=== PATIENT | male | born 1980 | race Caucasian/White ===

== ENCOUNTER 2020-04-05 04:20 | Inpatient (IN) | payer MEDICARE ==
[2020-04-05] MEDS ORDERED: Aspirin 325 MG TAB PO SCH (05:00)
--- NOTE | 2020-04-05 05:10 | PDOC.EVN ---
Event Note - Event Note Event Note: [id number] HP dictated
[2020-04-05] MEDS ORDERED: Furosemide 40 MG/4 ML VIAL SLOW IVP SCH ×2 (06:00→14:00)
[2020-04-05 06:12] LABS: Troponin I Less than 0.010 ng/mL (< 0.028)
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
[2020-04-05] MEDS ORDERED: Aspirin 325 mg Enteric Coated Tablet PO SCH (09:00)
[2020-04-05] MEDS ORDERED: Aspirin Chewable 81 MG TAB PO SCH (09:00)
[2020-04-05] MEDS ORDERED: Nitroglycerin 50 MG/250 ML BOT 250 ML IVPB SCH (09:30)
[2020-04-05] MEDS: Enoxaparin Sodium 40 MG/0.4 ML SYRINGE SC SCH (10:28)
[2020-04-05] MEDS ORDERED: Hydrochlorothiazide 25 MG TAB PO SCH (10:30)
[2020-04-05] MEDS ORDERED: Lisinopril 20 MG TAB PO SCH ×2 (10:30→21:00)
[2020-04-05] MEDS ORDERED: cloNIDine 0.1 MG TAB PO SCH (10:30)
[2020-04-05] MEDS ORDERED: Potassium Chloride 20 MEQ TAB PO SCH (10:30)
[2020-04-05 11:16] VITALS: BMI 42.4
[2020-04-05] MEDS ORDERED: Albuterol Sulfate 1.25 MG/3 ML NEB NEB PRN (13:44)
[2020-04-05] MEDS ORDERED: methylPREDNISolone Sod Succ 40 MG VIAL IVP SCH (13:45)
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
--- NOTE | 2020-04-05 15:26 | PDOC.HOSPP ---
- Subjective Encounter Date: 04/05/20 Encounter Time: 10:00 Subjective: THe patient was on nitro drip for uncontrolled hypertension. Reports he was on lisinopril and amlodipine for years, then was placed on benzapril, clonidine and podochloride? He states he just started podochloride few days ago, but was on the other medicines for years. Then last night he developed severe shortness of breath especially while laying down, wheezing and dry cough. Patient states he is always wheezing and inhalers aren't working He reports significant improvement in breathing compared to yesterdfay Last BM was yesterday. - Objective Vital Signs & Weight: Vital Signs (12 hours) Temp Pulse Resp BP Pulse Ox 04/05/20 14:23 76 28 H 98 04/05/20 13:00 97.7 F 04/05/20 10:29 146/92 H 04/05/20 10:28 146/92 H 04/05/20 08:30 97.6 F 100 Weight Admit Weight 255 lb 1.197 oz Weight 255 lb 1.197 oz Most Recent Monitor Data Heart Rate from ECG 74 NIBP 152/78 NIBP BP-Mean 102 Respiration from ECG 21 SpO2 99 I&O: 04/04/20 04/05/20 04/06/20 06:59 06:59 06:59 Intake Total 560 Output Total 600 Balance -40 Hospitalist ROS - Medication Medications: Active Medications Generic Name Dose Route Start Last Admin Trade Name Freq PRN Reason Stop Dose Admin Albuterol/Ipratropium 3 ml 04/05/20 14:30 04/05/20 14:23 Duoneb EZPAP 3 ml [id number] JAYSHREE Administration Enoxaparin Sodium 40 mg 04/05/20 09:00 04/05/20 10:28 Lovenox SC 40 mg 0900 JAYSHREE Administration Methylprednisolone Sodium Succinate 40 mg 04/05/20 13:45 04/05/20 14:29 Solu-Medrol IVP 04/05/20 15:45 40 mg NOW JAYSHREE Administration - Exam General Appearance: NAD, awake alert General - other findings: obese Eye: PERRL, anicteric sclera ENT: normocephalic atraumatic, no oropharyngeal lesions Neck: no JVD Heart: RRR, no murmur, no gallops, no rubs, normal peripheral pulses Respiratory - other findings: diminished breath sounds with significant wheezing Gastrointestinal: soft Gastrointestinal - other findings: distended, soft to palpation Extremities: no cyanosis, no clubbing, 1+ LE edema Hosp A/P - Plan This is a 39 year old male with hypertension presenting with shortness of breath ,dry cough, wheezing Acute hypoxic respiratory failure likely from COPD exacerbation vs mild diastolic heart failure - will give IV steroids - duonebs q4 and breathing treatments prn - continue lasix 40 mg IV daily - ECHO showed mild diastolic dysfunction. Cardiology is seeing the patient as well - troponins are negative times three Leukocytosis - WBC 13, will monitor - no fevers - will hold on antibiotics given he only has dry cough
[2020-04-05] MEDS: Hydrochlorothiazide 25 MG TAB PO SCH (20:12)
[2020-04-05] MEDS: cloNIDine 0.1 MG TAB PO SCH (20:12)
[2020-04-06 04:55] LABS: Anion Gap 13 mmol/L (10-20); BUN (Urea Nitrogen) 14 mg/dL (8.9-20.6); Calc. Creatinine Clearance 145 mL/min (70-130); Calcium 9.5 mg/dL (7.8-10.44); Carbon Dioxide 25 mmol/L (22-29); Chloride 101 mmol/L (98-107); Estimated GFR-MDRD 73; Glucose 169 mg/dL (70-105); Potassium 3.8 mmol/L (3.5-5.1); Sodium 135 mmol/L (136-145)
[2020-04-06 05:41] LABS: Band 17 % (5-11); Hemoglobin 15.2 g/dL (14.0-18.0); Lymphocytes 8 % (21-51); MDiff Complete? YES; Mean Corpuscular HGB CONC 32.5 g/dL (32.0-36.0); Mean Corpuscular Hemoglobin 30.6 pg (27.0-31.0); Mean Platelet Volume 9.7 fL (7.4-10.4); Monocytes 6 % (0-10); Neutrophil 69 % (42-75); Platelet Count 254 thou/uL (130-400); Red Blood Cell (RBC) Count 4.97 mill/uL (4.70-6.10); White Blood Cell (WBC) Count 24.9 thou/uL (4.8-10.8)
[2020-04-06] MEDS ORDERED: Potassium Chloride 20 MEQ TAB PO SCH (08:00)
[2020-04-06] MEDS ORDERED: Aspirin 325 mg Enteric Coated Tablet PO SCH (09:00)
[2020-04-06] MEDS ORDERED: Lisinopril 20 MG TAB PO SCH (09:00)
[2020-04-06] MEDS ORDERED: methylPREDNISolone Sod Succ 40 MG VIAL IVP SCH (09:00)
[2020-04-06] MEDS: cloNIDine 0.1 MG TAB PO SCH (09:17)
[2020-04-06] MEDS: Hydrochlorothiazide 25 MG TAB PO SCH (09:18)
[2020-04-06] MEDS: Enoxaparin Sodium 40 MG/0.4 ML SYRINGE SC SCH (09:19)
[2020-04-06 11:39] VITALS: TEMP 97.7
--- NOTE | 2020-04-06 13:11 | PDOC.CPN ---
- Subjective Date: 04/06/20 Time: 13:09 Interval history: He feels much better. He feels Nebs make his breathing much better. - Review of Systems General: denies: fever/chills, weight/appetite/sleep changes, night sweats, fatigue Respiratory: denies: cough, congestion, shortness of breath, exercise intolerance Cardiovascular: denies: chest pain, palpitation, edema, paroxysmal nocturnal dyspnea, orthopnea Gastrointestinal: denies: nausea, vomiting, diarrhea, constipation, abd pain, GI bleeding Musculoskeletal: denies: pain, tenderness, stiffness, swelling, arthritis/ arthralgias Neurological: denies: numbness, syncope, seizure, weakness - Objective Allergies/Adverse Reactions: Allergies Allergy/AdvReac Type Severity Reaction Status Date / Time methylphenidate Allergy Verified 04/05/20 04:46 [From Ritalin] Visit Medications: Current Medications Albuterol Sulfate (Albuterol Sulfate) 1.25 mg NEB [id number] PRN PRN Reason: Wheezing Albuterol/Ipratropium (Duoneb) 3 ml EZPAP [id number] [facility] Last Admin: 04/06/20 12:30 Dose: Not Given Aspirin (Ecotrin) 325 mg PO DAILY [facility] Last Admin: 04/06/20 09:17 Dose: 325 mg Clonidine (Catapres) 0.1 mg PO BID [facility] Last Admin: 04/06/20 09:17 Dose: 0.1 mg Enoxaparin Sodium (Lovenox) 40 mg SC 0900 [facility] Last Admin: 04/06/20 09:19 Dose: 40 mg Hydrochlorothiazide (Hydrochlorothiazide) 25 mg PO BID [facility] Last Admin: 04/06/20 09:18 Dose: 25 mg Lisinopril (Zestril) 40 mg PO DAILY [facility] Last Admin: 04/06/20 09:18 Dose: 40 mg Methylprednisolone Sodium Succinate (Solu-Medrol) 40 mg IVP DAILY [facility] Last Admin: 04/06/20 09:18 Dose: 40 mg Potassium Chloride (K-Dur) 20 meq PO QAM-WM [facility] Last Admin: 04/06/20 09:17 Dose: 20 meq Vital Signs & Weight: Vital Signs Temp Pulse Resp BP BP Pulse Ox 04/06/20 11:35 97.7 F 82 18 163/89 H 98 04/06/20 09:17 176/109 H 04/06/20 08:00 97.4 F L 73 21 H 170/101 H 96 04/06/20 06:48 70 16 97 04/06/20 04:09 97.7 F 81 18 190/103 H 96 04/06/20 01:58 20 Admit Weight 255 lb 1.197 oz Weight 255 lb 1.197 oz - Physical Exam General: alert & oriented x3 HEENT: mucus membranes moist Neck: supple neck Cardiac: regular rate and rhythm Lungs: clear to auscultation Neuro: grossly intact Abdomen: active bowel sounds Extremities: no edema Skin: clear Musculoskeletal: no pain - Labs Result Diagrams: 04/06/20 04:21 04/06/20 04:21 Troponin/CKMB Troponin I 0.010 ng/mL (< 0.028) 04/05/20 07:53 - Telemetry Sinus rhythms and dysrhythmias: sinus rhythm - Assessment/Plan Assessment/Plan: 1. HTN urgency 2. Expiratory wheezes, Bronchial asthma? 3. Diastolic CHF PLAN: - Will add nifedipine to BP meds. - Continue to up titrate meds in next few days. - Some of his BP issues are related to high dose steroids now i would guess his BP will improve once steroids done.
[2020-04-06] MEDS ORDERED: NIFEdipine XL 30 MG TAB PO SCH (15:00)
[2020-04-06 16:17] VITALS: BP 163/95
--- NOTE | 2020-04-07 02:40 | DIS ---
DATE OF ADMISSION: 04/05/2020 DATE OF DISCHARGE: 04/06/2020 DISCHARGE DIAGNOSES: 1. Acute hypoxic respiratory failure secondary to chronic obstructive pulmonary disease exacerbation versus mild diastolic heart failure. 2. Leukocytosis. 3. Hypertensive urgency. 4. Tobacco abuse BRIEF HISTORY OF PRESENT ILLNESS: This is a 39-year-old male with a past medical history of uncontrolled hypertension chronically in the 190s to 200, who presented to the emergency room with worsening shortness of breath. The patient reported that he had been having worsening shortness of breath that was getting worse over the past few days. He reported wheezing, dry cough, and shortness of breath, especially while lying down. He also had a dry cough. The patient reports that he has a history of COPD, but has never been prescribed any inhalers. He also reported recently been taking a medicine called podochloride? He states this was for hypertension. He took two doses but his wheezing and shortness of breath worsened. When the patient presented to the emergency room, his blood pressure was 149/97, but it increased to 177/110. The patient was noted to have mild edema in his lower extremities. He is noted to have significant wheezing. He did also have some slightly inverted T-waves. The patient had a chest x-ray on the , which showed no acute pulmonary findings. For some reason, there was a concern for mild pulmonary edema, so he was initially admitted to the CCU on a nitroglycerin drip and given IV lasix 40 mg. . He was admitted for further workup. HOSPITAL COURSE: Acute hypoxic respiratory failure secondary to COPD exacerbation versus mild diastolic heart failure. The patient was noted to have significant wheezing and diffusely diminished lung sounds. He was treated for a COPD exacerbation with IV steroids and breathing treatments. His shortness of breath resolved the following day. He was discharged with prednisone for five days, albuterol rescue inhaler prn, inhaled steroid and duoneb in emergency. Hypertensive urgency: The patient had elevated BP on admission. He was asymptomatic and there was no pulmonary edema on admission, but he was treated in the ER with a nitro drip which was discontinued shortly after resuming his home BP meds. ECHO showed mild diastolic dysfunction. BP was 190 systolic on morning of discharge. His lisinopril was increased to 40 mg and he was also given nifedipine 30 mg as well. Cardiology was consulted. His blood pressure improved to 163/95 with these adjustments; the patient was very anxious to go home and states his BP has been 200's for years. He will be discharged with lisinopril 40, hydrochlorothiazide 25 mg twice daily, and nifedipine. He will follow up with Dr. Hall in 4 weeks. Tobacco abuse: he was prescribed nicotine patch on discharge. Leukocytosis: WBC was 24.9 on discharge likely from IV steroids. This should be repeated in a week. DISCHARGE PHYSICAL EXAMINATION: VITAL SIGNS: Temperature 97.7, heart rate 82, respiratory rate 18, O2 saturation 98% on room air, and blood pressure 162/95. GENERAL: The patient is alert, awake, and oriented x3. CVS: Regular rate and rhythm with no murmurs, rubs, or gallops. LUNGS: Clear to auscultation bilaterally. ABDOMEN: Positive bowel sounds. Soft, nontender, and nondistended. EXTREMITIES: No edema. PERTINENT LABORATORY DATA: CBC 04/06: White count 24.9, hemoglobin 15.2, hematocrit 46.7, and platelet count is 254. BMP 04/06: Shows a sodium 135. Rest of BMP unremarkable. Troponin I: Less than 0.010 x3. PERTINENT IMAGING: Chest x-ray 04/05: Shows no acute disease. There is ectasia of the thoracic aorta. Echo: Shows EF of 60% to 65%, grade 2 to 3 diastolic dysfunction. Mild MR. Mild TR. DISCHARGE CONDITION: Stable. ACTIVITY: As tolerated. DIET: Regular diet. DISCHARGE MEDICATIONS: 1. DuoNeb nebulizer q.4 hours p.r.n. 2. ProAir inhaler q.4 hours p.r.n. 3. Pulmicort inhaler one puff inhalation b.i.d. 4. Hydrochlorothiazide 25 mg p.o. b.i.d. 5. Lisinopril 40 mg p.o. daily. 6. Nicotine patch one topical each daily. 7. Nifedipine 30 mg XL p.o. daily. 8. Prednisone 40 mg p.o. q.a.m. DISCHARGE INSTRUCTIONS: The patient should follow up with his PCP in a week. He should follow up with Dr. Abhi Hall in a month. Job ID: [id number] MTDD
[2020-04-07] MEDS ORDERED: NIFEdipine XL 30 MG TAB PO SCH (09:00)
--- NOTE | 2020-04-09 08:55 | PQF ---
[employer] Crystal Reports Winform FrancisNAEEM QURESHI JR EMILY, KIM [id number] [facility]-267 [id number] CLINICAL DOCUMENTATION CLARIFICATION FORM: POST DISCHARGE Addendum to original discharge summary date: ____ Late entry note date: __ DATE: 04/09/2020 ATTN: Dr. Nelson [facility] Please exercise your independent, professional judgment in responding to the clarification form. Clinical indicators are provided on the bottom of this form for your review Kindly clarify regarding acuity of heart failure Please check appropriate box(s): HEART FAILURE: ACUITY [ ] Acute [ X ] Acute on Chronic [ ] Chronic [ ] Other diagnosis [ ] Unable to determine In addition, please specify: Present on Admission (POA): [ ] Yes [ ] No [X ] Unable to determine For continuity of documentation, please document condition throughout progress notes and discharge summary. Thank You. CLINICAL INDICATORS - SIGNS / SYMPTOMS / LABS Acute congestive heart failure ?/pulmonary edema - H&P Acute hypoxic respiratory failure secondary to COPD exacerbation versus mild diastolic heart failure - Discharge summary Hypertensive urgency, most likely diastolic dysfunction - Consult 04/05 by Abhi Hall MD Ejection fraction is visually estimated at 60-65%. Grade 2/3 diastolic dysfunction - Transthoracic echocardiography 04/05 Diastolic CHF - PN 04/06 by Abhi Hall MD RISKS: Hypertensive emergency, obesity - H&P TREATMENTS: IV Lasix 04/05 - Medications Transthoracic echocardiography 04/05 (This form is maintained as a part of the permanent medical record) 2014 [employer]. All Rights Reserved [email or web address]
== END 2020-04-06 17:00 | disposition home or self-care (01) | DRG 291 ==
LOC: ERS 04:20 → ERHOLD 04:52 → CCU 08:26 → 2NO 16:02
PROVIDERS: ADMIT Internal Medicine; ATTEND Internal Medicine
DX: I11.0 Hypertensive heart disease with heart failure (principal); J96.01 Acute respiratory failure with hypoxia; J44.1 Chronic obstructive pulmonary disease with (acute) exacerbation; Z68.41 Body mass index [BMI] 40.0-44.9, adult; I50.33 Acute on chronic diastolic (congestive) heart failure; D72.829 Elevated white blood cell count, unspecified; E66.9 Obesity, unspecified; I16.0 Hypertensive urgency; I08.1 Rheumatic disorders of both mitral and tricuspid valves; Z88.8 Allergy status to other drugs, medicaments and biological substances; Z98.890 Other specified postprocedural states
CPT/HCPCS: 36415; 80048; 85025; 93005; 93306; 94640; 96365; 96366; J1650; J2920; J7620

== ENCOUNTER 2020-07-03 05:09 | Inpatient (IN) | payer MEDICARE, OTHER ==
[2020-07-03] MEDS ORDERED: Acetaminophen 325 MG TAB PO PRN (05:40)
--- NOTE | 2020-07-03 06:06 | PDOC.EVN ---
Event Note - Event Note Event Note: [id number] HP
--- NOTE | 2020-07-03 06:40 | HP ---
CHIEF COMPLAINT: Shortness of breath. HISTORY OF PRESENT ILLNESS: Mr. Garvey is a 40-year-old male with past medical history of COPD; congestive heart failure, diastolic, hypertension, traumatic brain injury, among others, is being transferred from [place] ER after he presented today with shortness of breath. He reports a significant cough and thick white sputum. Denies fever or chills. Prior to transfer, the patient was given three DuoNebs, Solu-Medrol and magnesium. The patient had significant improvement in his breathing, but still has significant wheezing. Workup in the emergency room including chest x-ray, no acute finding. The patient has been in the hospital for further management. PAST MEDICAL HISTORY: 1. Hypertension. 2. Cardiac arrhythmia. 3. Obesity. 4. Traumatic brain injury. 5. Chronic obstructive pulmonary disease. PAST SURGICAL HISTORY: Multiple surgeries to the left ear and surgery to the left knee. SOCIAL HISTORY: Drinks socially. He chews tobacco. FAMILY HISTORY: Grandfather of congestive heart failure in his 60s. ALLERGIES: RITALIN. HOME MEDICATIONS: See home medication reconciliation form for updated medications. REVIEW OF SYSTEMS: Review of 14 systems negative except what is mentioned in history of present illness. PHYSICAL EXAMINATION: GENERAL: The patient is awake, alert, in moderate respiratory distress. VITAL SIGNS: Blood pressure 166/95, pulse is 89, respiratory rate is 23, temperature is 98.1, oxygen saturation 92% on room air. HEAD AND NECK:Normocephalic, atraumatic. chest: Diffuse bilateral expiratory wheeze. HEART: S1, S2. Regular. ABDOMEN: Obese, soft. Bowel sounds present. NEUROLOGIC: Awake, alert, oriented, moving extremities. PSYCHIATRIC: Unable to assess. EXTREMITIES: No clubbing or cyanosis. LABORATORY DATA: WBC 12.7, hemoglobin 14.1, platelets 219. Sodium 139, potassium 4.1, glucose 120, chloride is 102. Troponin 0.01. BNP less than 10. Chest x-ray, mild pulmonary vascular congestion, otherwise no acute finding. ASSESSMENT AND PLAN: 1. Chronic obstructive pulmonary disease with acute exacerbation. 2. Hypertension. 3. Congestive heart failure, diastolic; chronic. 4. Obesity. 5. History of cardiac arrhythmias. 6. History of traumatic brain injury. PLAN: 1. Admit. 2. Continue with bronchodilators scheduled as needed. 3. Oxygen to keep saturation more 92%. 4. IV steroids. 5. IV antibiotics. 6. Reconcile home medications. 7. DVT prophylaxis as appropriate. 8. Expected length of stay, 2 midnights or more. Job ID: [id number]
[2020-07-03] MEDS: cefTRIAXone\\ROCEPHIN 1 GM in Sodium Chloride 0.9% 100 ML IVPB SCH (08:10)
[2020-07-03] MEDS: methylPREDNISolone Sod Succ 40 MG VIAL IVP SCH ×4 (08:17→23:31)
[2020-07-03] MEDS: Azithromycin 500 MG in Sodium Chloride 0.9% 250 ML 250 ML IVPB SCH (09:57)
[2020-07-03] MEDS: hydrALAZINE 20 MG/ML VIAL SLOW IVP PRN ×3 (10:01→20:14)
[2020-07-03 10:09] VITALS: BMI 41.3
[2020-07-03 11:44] LABS: SARS-CoV-2 MS2 Positive; SARS-CoV-2 N Gene Negative; SARS-CoV-2 S Gene Negative; SARS-CoV-2 by NAA Not Detected (NotDetected); SARS-CoV-2 orf1ab Negative
[2020-07-03] MEDS ORDERED: Albuterol Sulfate 2.5 mg/3 ml Neb NEB PRN (16:15)
[2020-07-03] MEDS ORDERED: NIFEdipine XL 30 MG TAB PO SCH (17:45)
[2020-07-03] MEDS ORDERED: Magnesium 2 GM/50 ML 2 GM in Premix Bag 1 BAG IVPB SCH (18:30)
[2020-07-03] MEDS ORDERED: guaiFENesin ER 600 MG TAB PO SCH (18:30)
[2020-07-03] MEDS: Mometasone 200 MCG/PUFF (1 INHALER) INH SCH (18:50)
[2020-07-03] MEDS: Nystatin Powder 15 GM BOT TOP SCH (20:13)
[2020-07-03] MEDS: Hydrochlorothiazide 25 MG TAB PO SCH (20:13)
[2020-07-03] MEDS ORDERED: Amlodipine 5 MG TAB PO SCH (23:45)
[2020-07-04] MEDS: cloNIDine 0.1 MG TAB PO PRN (01:49)
[2020-07-04] MEDS: hydrALAZINE 20 MG/ML VIAL SLOW IVP PRN ×2 (02:37→06:10)
[2020-07-04] MEDS ORDERED: cloNIDine 0.2 MG TAB PO SCH (03:45)
[2020-07-04] MEDS: Azithromycin 500 MG in Sodium Chloride 0.9% 250 ML 250 ML IVPB SCH (06:00)
[2020-07-04] MEDS: methylPREDNISolone Sod Succ 40 MG VIAL IVP SCH ×3 (06:00→18:05)
[2020-07-04] MEDS: cefTRIAXone\\ROCEPHIN 1 GM in Sodium Chloride 0.9% 100 ML IVPB SCH (06:01)
[2020-07-04] MEDS: Hydrochlorothiazide 25 MG TAB PO SCH ×2 (09:21→22:32)
[2020-07-04] MEDS: guaiFENesin ER 600 MG TAB PO SCH ×2 (09:22→22:33)
[2020-07-04] MEDS: NIFEdipine XL 30 MG TAB PO SCH (09:22)
[2020-07-04] MEDS: Nystatin Powder 15 GM BOT TOP SCH ×2 (09:22→22:33)
[2020-07-04] MEDS: Amlodipine 10 MG TAB PO SCH (09:22)
--- NOTE | 2020-07-04 11:20 | PDOC.HOSPP ---
- Subjective Encounter Date: 07/04/20 Encounter Time: 09:00 Subjective: Patient was seen for follow-up regarding COPD exacerbation. He is sleepy but arousable. Snoring while asleep. - Objective Vital Signs & Weight: Vital Signs (12 hours) Temp Pulse Resp BP BP BP BP 07/04/20 09:22 92 162/79 H 07/04/20 07:26 97.5 F L 92 20 162/79 H 07/04/20 06:57 87 16 07/04/20 06:10 83 181/93 H 07/04/20 03:52 207/130 H 07/04/20 03:35 97.7 F 106 H 22 H 207/130 H 07/04/20 02:47 24 H 07/04/20 02:37 202/106 H 07/04/20 01:49 207/136 H 07/04/20 00:07 106 H 24 H 07/03/20 23:38 97.9 F 106 H 20 183/109 H Pulse Ox 07/04/20 09:22 07/04/20 07:26 94 L 07/04/20 06:57 07/04/20 06:10 07/04/20 03:52 07/04/20 03:35 95 07/04/20 02:47 93 L 07/04/20 02:37 07/04/20 01:49 07/04/20 00:07 93 L 07/03/20 23:38 93 L Weight Weight 264 lb 1.6 oz I&O: 07/03/20 07/04/20 07/05/20 06:59 06:59 06:59 Intake Total 3390 Output Total 550 Balance 2840 Additional Labs: I reviewed patient's labs and MAR Hospitalist ROS - Review of Systems ROS unobtainable: due to mental status - Medication Medications: Active Medications Generic Name Dose Route Start Last Admin Trade Name Freq PRN Reason Stop Dose Admin Albuterol/Ipratropium 3 ml 07/03/20 07:00 07/04/20 06:57 Duoneb NEB 3 ml [id number] JAYSHREE Administration Albuterol/Ipratropium 3 ml 07/03/20 05:38 07/04/20 02:47 Duoneb NEB 3 ml [id number] PRN Administration SOB &/or Wheezing Amlodipine Besylate 10 mg 07/04/20 09:00 07/04/20 09:22 Norvasc PO 10 mg DAILY JAYSHREE Administration Clonidine 0.1 mg 07/04/20 01:09 07/04/20 01:49 Catapres PO 0.1 mg Q4H PRN Administration SBP Greater Than 180 Guaifenesin 600 mg 07/04/20 09:00 07/04/20 09:22 Mucinex PO 600 mg Q12HR JAYSHREE Administration Hydralazine HCl 10 mg 07/03/20 06:09 07/04/20 06:10 Apresoline SLOW IVP 10 mg Q4H PRN Administration Hypertension Hydrochlorothiazide 25 mg 07/03/20 21:00 07/04/20 09:21 Hydrochlorothiazide PO 25 mg BID JAYSHREE Administration Azithromycin 500 mg/ Sodium 250 mls @ 250 mls/hr 07/03/20 06:00 07/04/20 06: 00 Chloride IVPB 250 mls Q24HR JAYSHREE Administration Ceftriaxone Sodium 1 gm/ 100 mls @ 200 mls/hr 07/03/20 06:00 07/04/20 06:01 Sodium Chloride IVPB 100 mls Q24HR JAYSHREE Administration Methylprednisolone Sodium Succinate 40 mg 07/03/20 06:00 07/04/20 06:00 Solu-Medrol IVP 40 mg Q6HR JAYSHREE Administration Mometasone Furoate 200 mcg 07/03/20 18:30 07/03/20 18:50 Asmanex Hfa 200 Mcg INH 2 ampule 1830 JAYSHREE Administration Nifedipine 30 mg 07/04/20 09:00 07/04/20 09:22 Procardia Xl PO 30 mg DAILY JAYSHREE Administration Nystatin 0 gm 07/03/20 21:00 07/04/20 09:22 Mycostatin Powder TOP 1 applic BID JAYSHREE Administration - Exam General - other findings: Morbid obese Eye: anicteric sclera ENT: moist mucosa Neck: supple Heart: RRR Respiratory: normal chest expansion, wheezes Gastrointestinal: soft, non-tender, normal bowel sounds, distended Skin: no rashes Psychiatric: lethargic Hosp A/P (1) COPD exacerbation Code(s): J44.1 - CHRONIC OBSTRUCTIVE PULMONARY DISEASE W (ACUTE) EXACERBATION Status: Acute (2) Hypertension Code(s): I10 - ESSENTIAL (PRIMARY) HYPERTENSION Status: Chronic (3) Morbid obesity Code(s): E66.01 - MORBID (SEVERE) OBESITY DUE TO EXCESS CALORIES Status: Chronic - Plan Patient is clinically improving, but slowly. Continue oxygen as needed, continue bronchodilators, continue antibiotics and continue steroids intravenously for now. Patient's blood pressure was elevated last night. Will monitor vital signs and titrate antihypertensives as needed. Patient will likely benefit from polysomnography as outpatient.
[2020-07-04] MEDS: Mometasone 200 MCG/PUFF (1 INHALER) INH SCH (18:35)
--- NOTE | 2020-07-04 22:20 | EKG ---
Test Reason : Blood Pressure : / mmHG Vent. Rate : 098 BPM Atrial Rate : 098 BPM P-R Int : 184 ms QRS Dur : 102 ms QT Int : 372 ms P-R-T Axes : 065 063 031 degrees QTc Int : 474 ms Normal sinus rhythm Normal ECG No previous ECGs available Confirmed by Jarad HEBERT ([id number]) on 07/04/2020 10:20:29 PM Referred By: TITO TODD Confirmed By:Jarad HEBERT
[2020-07-05] MEDS: methylPREDNISolone Sod Succ 40 MG VIAL IVP SCH ×2 (00:07→05:59)
[2020-07-05 05:42] LABS: #Eosinphils 0.1 thou/uL (0.0-0.7); #Lymphocytes 1.8 thou/uL (1.20-3.40); #Monocytes 0.9 thou/uL (0.11-0.59); #Neutrophils 16.7 thou/uL (1.40-6.50); %Basophils 0.2 % (0.0-1.0); %Eosinophils 0.5 % (0.0-10.0); %Monocytes 4.6 % (0.0-10.0); %Neutrophils 85.7 % (42.0-75.0); Hemoglobin 14.8 g/dL (14.0-18.0); Mean Corpuscular HGB CONC 33.9 g/dL (32.0-36.0); Mean Corpuscular Hemoglobin 32.4 pg (27.0-31.0); Mean Corpuscular Volume 95.8 fL (78.0-98.0); Mean Platelet Volume 9.5 fL (7.4-10.4); Platelet Count 253 thou/uL (130-400); RBC Distribution Width 13.1 % (11.5-14.5); Red Blood Cell (RBC) Count 4.56 mill/uL (4.70-6.10); White Blood Cell (WBC) Count 19.4 thou/uL (4.8-10.8)
[2020-07-05] MEDS: Azithromycin 500 MG in Sodium Chloride 0.9% 250 ML 250 ML IVPB SCH (05:59)
[2020-07-05] MEDS: cefTRIAXone\\ROCEPHIN 1 GM in Sodium Chloride 0.9% 100 ML IVPB SCH (05:59)
[2020-07-05 06:07] LABS: Anion Gap 13 mmol/L (10-20); BUN (Urea Nitrogen) 18 mg/dL (8.9-20.6); Calc. Creatinine Clearance 187 mL/min (70-130); Calcium 9.3 mg/dL (7.8-10.44); Carbon Dioxide 23 mmol/L (22-29); Chloride 102 mmol/L (98-107); Estimated GFR-MDRD Greater than 90; Glucose 135 mg/dL (70-105); Potassium 4.4 mmol/L (3.5-5.1); Sodium 134 mmol/L (136-145)
[2020-07-05] MEDS: Nystatin Powder 15 GM BOT TOP SCH ×2 (09:00→20:32)
[2020-07-05] MEDS: Hydrochlorothiazide 25 MG TAB PO SCH ×2 (09:15→20:30)
[2020-07-05] MEDS: Amlodipine 10 MG TAB PO SCH (09:15)
[2020-07-05] MEDS: NIFEdipine XL 30 MG TAB PO SCH (09:15)
[2020-07-05] MEDS: guaiFENesin ER 600 MG TAB PO SCH ×2 (09:15→20:30)
[2020-07-05] MEDS: predniSONE 20 MG TAB PO SCH (09:18)
--- NOTE | 2020-07-05 12:09 | PDOC.HOSPP ---
- Subjective Encounter Date: 07/05/20 Encounter Time: 07:30 Subjective: Patient seen as follow-up regarding COPD exacerbation. Feels better. - Objective Vital Signs & Weight: Vital Signs (12 hours) Temp Pulse Resp BP BP BP Pulse Ox 07/05/20 11:48 162/92 H 07/05/20 09:21 95 07/05/20 09:15 87 166/100 H 07/05/20 07:37 87 18 95 07/05/20 07:26 98.5 F 89 20 166/106 H 95 07/05/20 04:00 97.8 F 82 20 148/88 H 96 Weight Admit Weight 264 lb 1.6 oz Weight 264 lb 1.6 oz I&O: 07/04/20 07/05/20 07/06/20 06:59 06:59 06:59 Intake Total 3390 720 Output Total 550 Balance 2840 720 Result Diagrams: 07/05/20 05:24 07/05/20 05:24 Additional Labs: I reviewed patient's labs and MAR Hospitalist ROS - Review of Systems Respiratory: reports: cough, dry, SOB with excertion, wheezing. denies: shortness of breath, hemoptysis, pleuritic pain, sputum Cardiovascular: denies: chest pain, palpitations, orthopnea, paroxysmal noc. dyspnea, edema, light headedness - Medication Medications: Active Medications Generic Name Dose Route Start Last Admin Trade Name Freq PRN Reason Stop Dose Admin Albuterol/Ipratropium 3 ml 07/03/20 07:00 07/05/20 07:37 Duoneb NEB 3 ml [id number] JAYSHREE Administration Albuterol/Ipratropium 3 ml 07/03/20 05:38 07/04/20 02:47 Duoneb NEB 3 ml [id number] PRN Administration SOB &/or Wheezing Amlodipine Besylate 10 mg 07/04/20 09:00 07/05/20 09:15 Norvasc PO 10 mg DAILY JAYSHREE Administration Clonidine 0.1 mg 07/04/20 01:09 07/04/20 01:49 Catapres PO 0.1 mg Q4H PRN Administration SBP Greater Than 180 Guaifenesin 600 mg 07/04/20 09:00 07/05/20 09:15 Mucinex PO 600 mg Q12HR JAYSHREE Administration Hydralazine HCl 10 mg 07/03/20 06:09 07/04/20 06:10 Apresoline SLOW IVP 10 mg Q4H PRN Administration Hypertension Hydrochlorothiazide 25 mg 07/03/20 21:00 07/05/20 09:15 Hydrochlorothiazide PO 25 mg BID JAYSHREE Administration Levofloxacin 500 mg 07/05/20 09:00 07/05/20 09:18 Levaquin PO 500 mg Q24HR JAYSHREE Administration Mometasone Furoate 200 mcg 07/03/20 18:30 07/04/20 18:35 Asmanex Hfa 200 Mcg INH 2 puff 1830 JAYSHREE Administration Nifedipine 30 mg 07/04/20 09:00 07/05/20 09:15 Procardia Xl PO 30 mg DAILY JAYSHREE Administration Nystatin 0 gm 07/03/20 21:00 07/04/20 22:33 Mycostatin Powder TOP 1 applic BID JAYSHREE Administration Prednisone 40 mg 07/05/20 09:00 07/05/20 09:18 Prednisone PO 40 mg Q24HR JAYSHREE Administration Sodium Chloride 10 ml 07/05/20 09:00 07/05/20 09:16 Flush - Normal Saline IVF Not Given Q12HR JAYSHREE - Exam General - other findings: Morbid obesity Eye: anicteric sclera ENT: moist mucosa Neck: supple Heart: RRR Respiratory: no rales, no ronchi Respiratory - other findings: Wheezing has improved Gastrointestinal: soft, non-tender, normal bowel sounds Extremities: no edema Skin: no rashes Skin - other findings: Multiple tattoos Psychiatric: normal affect, normal behavior Hosp A/P (1) COPD exacerbation Code(s): J44.1 - CHRONIC OBSTRUCTIVE PULMONARY DISEASE W (ACUTE) EXACERBATION Status: Acute (2) Hypertension Code(s): I10 - ESSENTIAL (PRIMARY) HYPERTENSION Status: Chronic (3) Morbid obesity Code(s): E66.01 - MORBID (SEVERE) OBESITY DUE TO EXCESS CALORIES Status: Chronic - Plan Market improvement compared to yesterday in terms of COPD exacerbation. Change antibiotics and steroids to oral. Continue bronchodilators and PRN oxygen. Discontinue amlodipine, increase the dose of Procardia to 60 mg daily and add lisinopril 2.5 mg daily and give one-time dose of lisinopril 5 mg and one-time dose of Procardia 30 mg. Discussed with patient regarding polysomnography as outpatient. He will need a referral for outpatient sleep study. Likely home 24 to 48 hours.
[2020-07-05] MEDS ORDERED: Lisinopril 5 MG TAB PO SCH (12:15)
[2020-07-05] MEDS ORDERED: NIFEdipine XL 30 MG TAB PO SCH (12:15)
[2020-07-05] MEDS: Mometasone 200 MCG/PUFF (1 INHALER) INH SCH (18:21)
[2020-07-06] MEDS: cloNIDine 0.1 MG TAB PO PRN (04:14)
[2020-07-06 07:00] LABS: #Basophils 0.1 thou/uL (0.0-0.2); #Eosinphils 0.1 thou/uL (0.0-0.7); #Lymphocytes 3.8 thou/uL (1.20-3.40); #Monocytes 1.6 thou/uL (0.11-0.59); #Neutrophils 11.9 thou/uL (1.40-6.50); %Basophils 0.7 % (0.0-1.0); %Eosinophils 0.7 % (0.0-10.0); %Lymphocytes 21.7 % (21.0-51.0); Hemoglobin 15.8 g/dL (14.0-18.0); Mean Corpuscular HGB CONC 31.8 g/dL (32.0-36.0); Mean Corpuscular Hemoglobin 30.6 pg (27.0-31.0); Mean Corpuscular Volume 96.2 fL (78.0-98.0); Mean Platelet Volume 9.6 fL (7.4-10.4); Platelet Count 273 thou/uL (130-400); RBC Distribution Width 13.2 % (11.5-14.5); Red Blood Cell (RBC) Count 5.16 mill/uL (4.70-6.10); White Blood Cell (WBC) Count 17.5 thou/uL (4.8-10.8)
[2020-07-06 07:32] LABS: Anion Gap 12 mmol/L (10-20); BUN (Urea Nitrogen) 20 mg/dL (8.9-20.6); Calc. Creatinine Clearance 149 mL/min (70-130); Calcium 9.3 mg/dL (7.8-10.44); Carbon Dioxide 26 mmol/L (22-29); Chloride 98 mmol/L (98-107); Estimated GFR-MDRD 73; Glucose 88 mg/dL (70-105); Potassium 3.9 mmol/L (3.5-5.1); Sodium 132 mmol/L (136-145)
[2020-07-06 08:00] VITALS: TEMP 97.6
[2020-07-06] MEDS: Hydrochlorothiazide 25 MG TAB PO SCH (08:38)
[2020-07-06] MEDS: guaiFENesin ER 600 MG TAB PO SCH (08:38)
[2020-07-06] MEDS: Nystatin Powder 15 GM BOT TOP SCH (08:39)
[2020-07-06] MEDS ORDERED: Lisinopril 2.5 MG TAB PO SCH (09:00)
[2020-07-06] MEDS ORDERED: NIFEdipine XL 60 MG TAB PO SCH (09:00)
[2020-07-06] MEDS: predniSONE 20 MG TAB PO SCH (09:17)
[2020-07-06 11:58] VITALS: BP 136/85
--- NOTE | 2020-07-07 02:55 | DIS ---
DATE OF ADMISSION: 07/03/2020 DATE OF DISCHARGE: 07/06/2020 PRIMARY CARE PROVIDER: Ivette Mills MD DISCHARGE DIAGNOSES: 1. Chronic obstructive pulmonary disease exacerbation. 2. Morbid obesity. 3. Suspected obstructive sleep apnea syndrome. 4. Hyponatremia. CONDITION OF PATIENT ON THE DAY OF DISCHARGE: Stable. I assessed Mr. Guru Proctor on the day of discharge. He denies any chest pain or shortness of breath. Vital signs are stable. S1 and S2 are heard, regular. Lungs are clear to auscultation bilaterally. DISCHARGE MEDICATIONS: 1. ProAir HFA p.r.n. 2. Levofloxacin 500 mg daily for 1 week. 3. Pulmicort Flexhaler one puff two times a day. 4. DuoNeb p.r.n., 100 doses dispensed. 5. Lisinopril 40 mg daily. 6. Procardia XL 30 mg daily. 7. Prednisone taper. POST ACUTE CARE FOLLOWUP: With primary care provider on July 11, 2020 at 11:15 a.m. ACTIVITY: As tolerated. DIET: Heart healthy. HOSPITAL COURSE: Mr. Guru Proctor is a pleasant 40-year-old gentleman, who was admitted to [facility] on July 03, 2020 for COPD exacerbation. He improved with oxygen, steroids, bronchodilators, and antibiotics. He is being discharged home in a stable condition. During this hospitalization, he was noticed to be snoring heavily. He is being referred to outpatient sleep study for a suspected obstructive sleep apnea syndrome. Many thanks for allowing me to participate in your patient's care. Please feel free to contact me with any questions or concerns. On the day of discharge, he has white count 17,500, hemoglobin 15.8, platelet count 273,000. Sodium of 132, potassium 3.9, and creatinine 1.12. Hydrochlorothiazide was discontinued during this hospitalization because of hyponatremia. He has been advised to check his blood pressure and heart rate 3 times a day and show the readings to primary care provider. DISCHARGE DESTINATION: Home. TIME SPENT: Total amount of time spent coordinating this discharge: 32 minutes. Job ID: [id number]
--- NOTE | 2020-07-07 06:54 | PQF ---
CLINICAL DOCUMENTATION CLARIFICATION FORM: Dear : Brad Vaz Date / Time: 07/07/2020 0653 Please exercise your independent, professional judgment in responding to the clarification form. Clinical indicators are provided on the bottom of this form for your review Please check appropriate box(es): [ ] Acute Respiratory Failure Hypoxia [ ] ARDS (Acute Respiratory Distress Syndrome) [ ] Hypoxia [ x ] Other diagnosis ____copd exacerbation [ ] Unable to determine In addition, please specify: Present on Admission (POA): [ x ] Yes [ ] No [ ] Unable to determine Physician Signature: Date/Time: For continuity of documentation, please document condition throughout progress notes and discharge summary. Thank You. To be completed by CDI/Coding staff for physician review: Present Clinical Indicators - Signs / Symptoms / Labs Results and Location in Medical Record [X] BP 180/114, Pulse 94, Resp 24, Temp 97.8 Vital signs 07/03 [X] O2 sat 94%; 96%; 93% Vital signs 07/03 [X] Hypoxia ED Notes p7 07/03 [X] Respiratory distress H&P p1 06/30 Dr Ordonez [X] Presented with SOB H&P p1 06/30 Dr Ordonez [X] Significant cough and thick white sputum H&P p1 06/30 Dr Ordonez Present Risk Factors Results and Location in Medical Record [X] HTN H&P p1 06/30 Dr Ordonez [X] Obesity H&P p1 06/30 Dr Ordonez [X] CHF diastolic H&P p1 06/30 Dr Ordonez [X] COPD exacerbation H&P p1 06/30 Dr Ordonez [X] JEREMÍAS H&P p1 06/30 Dr Ordonez [X] Smoker ED Notes 07/03 Present Treatments Results and Location in Medical Record [X] Prednisone 40 mg oral JAN 02 [X] IV Solumedrol 40 mg JAN 02 [X] Asmanex hfa 200 mcg [place] JAN 02 [X] Duoneb 3 mg Neb JAN 02 [X] Oxygen 2L Respiratory Panel 07/03 [facility] Operator Signature: Poly Saezrosemarie Phone #: [phone] Date/Time: 07/07/2020 0653 Acute Respiratory Failure: ABG pH < 7.35 or > 7.45; Decreased oxygen saturation (<90% room air or < 95% on oxygen); PCO2 > 50 mm Hg; PO2 < 60 mm Hg; Labored or rapid respirations ARDS: Dx Criteria [[place] ARDS]: Respiratory symptoms within one week of a known clinical insult (e.g. shock, infection, surgery, trauma) Bilateral opacities in CXR/Chest CT not due to CHF or fluid This is a permanent part of the Medical Record [facility]
== END 2020-07-06 14:13 | disposition home or self-care (01) | DRG 191 ==
LOC: ERS 05:09 → T4-A 05:42
PROVIDERS: ADMIT Internal Medicine; ATTEND Internal Medicine
DX: J44.1 Chronic obstructive pulmonary disease with (acute) exacerbation (principal); Z68.41 Body mass index [BMI] 40.0-44.9, adult; E87.1 Hypo-osmolality and hyponatremia; I50.32 Chronic diastolic (congestive) heart failure; Z20.828 Contact with and (suspected) exposure to other viral communicable diseases; E66.01 Morbid (severe) obesity due to excess calories; G47.33 Obstructive sleep apnea (adult) (pediatric); I11.0 Hypertensive heart disease with heart failure; F17.220 Nicotine dependence, chewing tobacco, uncomplicated; Z87.820 Personal history of traumatic brain injury; Z79.899 Other long term (current) drug therapy; Z79.51 Long term (current) use of inhaled steroids
CPT/HCPCS: 36415; 80048; 85025; 87635; 93005; 93010; 94640; J0360; J0456; J0696; J2920; J3475; J3490; J7050; J7512; J7620; U0003

== ENCOUNTER 2020-12-18 20:04 | Inpatient (IN) | payer MEDICARE ==
[2020-12-18 20:53] LABS: #Basophils 0.1 thou/uL (0.0-0.2); #Eosinphils 0.9 thou/uL (0.0-0.7); #Neutrophils 10.8 thou/uL (1.40-6.50); %Basophils 0.4 % (0.0-1.0); %Eosinophils 5.9 % (0.0-10.0); %Lymphocytes 18.9 % (21.0-51.0); %Monocytes 6.3 % (0.0-10.0); %Neutrophils 68.4 % (42.0-75.0); Hemoglobin 14.8 g/dL (14.0-18.0); Mean Corpuscular HGB CONC 32.9 g/dL (32.0-36.0); Mean Corpuscular Hemoglobin 30.1 pg (27.0-31.0); Mean Corpuscular Volume 91.6 fL (78.0-98.0); Mean Platelet Volume 10.1 fL (7.4-10.4); Platelet Count 223 thou/uL (130-400); RBC Distribution Width 13.1 % (11.5-14.5); Red Blood Cell (RBC) Count 4.93 mill/uL (4.70-6.10); White Blood Cell (WBC) Count 15.7 thou/uL (4.8-10.8)
[2020-12-18 21:07] LABS: ALT (SGPT) 46 U/L (8-55); AST (SGOT) 30 U/L (5-34); Albumin 4.1 g/dL (3.5-5.0); Alkaline Phosphatase 97 U/L (40-110); Anion Gap 15 mmol/L (10-20); BUN (Urea Nitrogen) 30 mg/dL (8.9-20.6); Bilirubin, Total 0.4 mg/dL (0.2-1.2); Calc. Creatinine Clearance 0 mL/min (70-130); Calcium 9.7 mg/dL (7.8-10.44); Carbon Dioxide 27 mmol/L (22-29); Chloride 102 mmol/L (98-107); Globulin 3.1 g/dL (2.4-3.5); Glucose 120 mg/dL (70-105); Potassium 3.6 mmol/L (3.5-5.1); Protein, Total 7.2 g/dL (6.0-8.3); Sodium 140 mmol/L (136-145)
[2020-12-18 23:29] LABS: Acetaminophen Less than 6.0 mcg/mL (10.0-30.0); Alcohol Less than 10 mg/dL (Less than 10); Salicylate Less than 8.0 mg/dL (15.0-30.0)
[2020-12-18] MEDS ORDERED: Albuterol 200 PUFF (6.7GM INHALER) ONE (23:51)
[2020-12-19] MEDS ORDERED: Ipratropium Oral Inhaler INH SCH (00:15)
[2020-12-19 05:16] LABS: SARS-CoV-2 PCR by NAA Not Detected (NotDetected)
[2020-12-19] MEDS ORDERED: Albuterol Sulfate 2.5 mg/3 ml Neb NEB PRN (06:41)
[2020-12-19] MEDS ORDERED: Albuterol Sulfate 2.5 mg/3 ml Neb ONE ×2 (08:12→08:13)
[2020-12-19] MEDS ORDERED: Senokot S 8.6-50 MG TAB PO PRN (08:41)
[2020-12-19] MEDS ORDERED: Ondansetron ODT 4 MG TAB PO PRN (08:41)
[2020-12-19] MEDS ORDERED: Bisacodyl 5 MG TAB PO PRN (08:41)
[2020-12-19] MEDS ORDERED: Albuterol Sulfate 1.25 MG/3 ML NEB NEB PRN (08:47)
[2020-12-19] MEDS ORDERED: Lisinopril 20 MG TAB PO SCH (09:00)
[2020-12-19] MEDS ORDERED: Aspirin 81 mg Enteric Coated Tablet PO SCH ×2 (09:00→10:00)
[2020-12-19] MEDS ORDERED: Furosemide 40 MG TAB PO SCH (09:00)
[2020-12-19] MEDS ORDERED: Magnevist 469MG/ML 20 ML VIAL ONE (10:39)
[2020-12-19] MEDS ORDERED: Aspirin Chewable 81 MG TAB ONE (11:01)
[2020-12-19] MEDS ORDERED: cefTRIAXone\\ROCEPHIN 1 GM VIAL ONE (11:01)
[2020-12-19] MEDS ORDERED: Lisinopril 10 MG TAB ONE (11:01)
[2020-12-19] MEDS ORDERED: Enoxaparin Sodium 40 MG/0.4 ML SYRINGE ONE (11:01)
[2020-12-19] MEDS: Enoxaparin Sodium 40 MG/0.4 ML SYRINGE SC SCH (11:03)
[2020-12-19] MEDS: cefTRIAXone\\ROCEPHIN 1 GM in Sodium Chloride 0.9% 100 ML IVPB SCH (11:09)
[2020-12-19] MEDS ORDERED: hydrALAZINE 20 MG/ML VIAL SLOW IVP PRN (15:56)
[2020-12-19 18:24] VITALS: BMI 44.1
[2020-12-19] MEDS: NIFEdipine XL 30 MG TAB PO SCH (18:38)
[2020-12-19] MEDS ORDERED: Albuterol Sulfate 4 mg SR Tablet PO SCH (21:00)
[2020-12-19] MEDS: Lorazepam 2 MG/ML VIAL SLOW IVP PRN (22:00)
[2020-12-19] MEDS: Atorvastatin Calcium 40 MG TAB PO SCH (22:01)
[2020-12-19] MEDS: Furosemide 40 MG/4 ML VIAL SLOW IVP SCH (22:01)
[2020-12-19] MEDS: Acetaminophen 325 MG TAB PO PRN (22:01)
[2020-12-19] MEDS ORDERED: Guaifenesin DM 100-10/5 ML UDCUP PO PRN (23:01)
[2020-12-19] MEDS ORDERED: Benzonatate 100 MG CAP PO PRN (23:01)
[2020-12-20 06:20] LABS: Hemoglobin 13.1 g/dL (14.0-18.0); Mean Corpuscular HGB CONC 32.5 g/dL (32.0-36.0); Mean Corpuscular Volume 92.2 fL (78.0-98.0); Mean Platelet Volume 9.5 fL (7.4-10.4); Platelet Count 190 thou/uL (130-400); RBC Distribution Width 13.1 % (11.5-14.5); Red Blood Cell (RBC) Count 4.37 mill/uL (4.70-6.10); White Blood Cell (WBC) Count 12.4 thou/uL (4.8-10.8)
[2020-12-20 06:23] LABS: Band 4 % (5-11); Eosinophils 9 % (0-10); Lymphocytes 19 % (21-51); MDiff Complete? YES; Monocytes 4 % (0-10); Neutrophil 63 % (42-75); Platelet Morphology Comment Appears Adequate; Reactive Lymphocytes 1 % (0-10)
[2020-12-20 06:30] LABS: ALT (SGPT) 36 U/L (8-55); AST (SGOT) 23 U/L (5-34); Albumin 3.5 g/dL (3.5-5.0); Alkaline Phosphatase 82 U/L (40-110); Anion Gap 12 mmol/L (10-20); BUN (Urea Nitrogen) 21 mg/dL (8.9-20.6); Bilirubin, Total 0.4 mg/dL (0.2-1.2); Calc. Creatinine Clearance 154 mL/min (70-130); Calcium 8.9 mg/dL (7.8-10.44); Carbon Dioxide 29 mmol/L (22-29); Cardiac Risk 4.8 (Less than 4.5); Chloride 100 mmol/L (98-107); Cholesterol 168 mg/dl (< 200 Desired); Globulin 2.6 g/dL (2.4-3.5); Glucose 125 mg/dL (70-105); HDL Cholesterol 35 mg/dL (>60 Neg Risk); LDL Cholesterol, Calculated 106 mg/dL; Potassium 3.3 mmol/L (3.5-5.1); Protein, Total 6.1 g/dL (6.0-8.3); Sodium 138 mmol/L (136-145); Triglycerides 135 mg/dL (Less than 150)
[2020-12-20] MEDS: NIFEdipine XL 30 MG TAB PO SCH (09:47)
[2020-12-20] MEDS: Aspirin 81 mg Enteric Coated Tablet PO SCH (09:47)
[2020-12-20] MEDS: Enoxaparin Sodium 40 MG/0.4 ML SYRINGE SC SCH (09:48)
[2020-12-20] MEDS: Furosemide 40 MG/4 ML VIAL SLOW IVP SCH ×2 (10:25→20:37)
[2020-12-20] MEDS: cefTRIAXone\\ROCEPHIN 1 GM in Sodium Chloride 0.9% 100 ML IVPB SCH (13:05)
[2020-12-20] MEDS: Benzonatate 100 MG CAP PO SCH ×2 (14:53→20:37)
[2020-12-20] MEDS ORDERED: Spironolactone 25 MG TAB PO SCH (18:00)
[2020-12-20] MEDS ORDERED: Potassium Chloride 20 MEQ TAB PO SCH (18:15)
[2020-12-20] MEDS: levETIRAcetam 500 MG TAB PO SCH (20:36)
[2020-12-20] MEDS: Atorvastatin Calcium 40 MG TAB PO SCH (20:37)
[2020-12-20] MEDS: Lorazepam 2 MG/ML VIAL SLOW IVP PRN (20:37)
[2020-12-21 05:11] LABS: Anion Gap 9 mmol/L (10-20); BUN (Urea Nitrogen) 19 mg/dL (8.9-20.6); Calc. Creatinine Clearance 161 mL/min (70-130); Calcium 8.9 mg/dL (7.8-10.44); Carbon Dioxide 33 mmol/L (22-29); Chloride 101 mmol/L (98-107); Glucose 105 mg/dL (70-105); Potassium 3.7 mmol/L (3.5-5.1); Sodium 139 mmol/L (136-145)
[2020-12-21] MEDS: Spironolactone 25 MG TAB PO SCH (07:13)
[2020-12-21] MEDS: levETIRAcetam 500 MG TAB PO SCH ×2 (10:13→20:31)
[2020-12-21] MEDS: Furosemide 40 MG/4 ML VIAL SLOW IVP SCH ×2 (10:14→20:33)
[2020-12-21] MEDS: Aspirin 81 mg Enteric Coated Tablet PO SCH (10:14)
[2020-12-21] MEDS: Azithromycin 250 MG TAB PO SCH (10:14)
[2020-12-21] MEDS: Lisinopril 20 MG TAB PO SCH (10:14)
[2020-12-21] MEDS: Enoxaparin Sodium 40 MG/0.4 ML SYRINGE SC SCH (10:14)
[2020-12-21] MEDS: Benzonatate 100 MG CAP PO SCH ×3 (10:14→20:31)
[2020-12-21] MEDS: cefTRIAXone\\ROCEPHIN 1 GM in Sodium Chloride 0.9% 100 ML IVPB SCH (10:26)
[2020-12-21] MEDS ORDERED: Magnesium Sulfate 4 GM in Sodium Chloride 0.9% 250 ML 250 ML IVPB SCH (16:15)
[2020-12-21] MEDS: methylPREDNISolone Sod Succ 40 MG VIAL IVP SCH (16:39)
[2020-12-21] MEDS: Mometasone 200 MCG/Formoterol 5 MCG 120 PUFF INHALER INH SCH (20:30)
[2020-12-21] MEDS: Montelukast Sodium 10 mg Tablet PO SCH (20:31)
[2020-12-21] MEDS: Atorvastatin Calcium 40 MG TAB PO SCH (20:31)
[2020-12-22] MEDS: methylPREDNISolone Sod Succ 40 MG VIAL IVP SCH ×5 (00:29→22:40)
[2020-12-22] MEDS: Acetaminophen 325 MG TAB PO PRN (01:23)
[2020-12-22] MEDS: Mometasone 200 MCG/Formoterol 5 MCG 120 PUFF INHALER INH SCH ×2 (07:29→20:21)
[2020-12-22] MEDS ORDERED: predniSONE 20 MG TAB PO SCH (09:00)
[2020-12-22] MEDS: Azithromycin 250 MG TAB PO SCH (09:59)
[2020-12-22] MEDS: Enoxaparin Sodium 40 MG/0.4 ML SYRINGE SC SCH (09:59)
[2020-12-22] MEDS: Furosemide 40 MG/4 ML VIAL SLOW IVP SCH (10:00)
[2020-12-22] MEDS: Benzonatate 100 MG CAP PO SCH ×3 (10:00→22:39)
[2020-12-22] MEDS: Lisinopril 20 MG TAB PO SCH (10:00)
[2020-12-22] MEDS: Aspirin 81 mg Enteric Coated Tablet PO SCH (10:00)
[2020-12-22] MEDS: Spironolactone 25 MG TAB PO SCH (10:00)
[2020-12-22] MEDS: levETIRAcetam 500 MG TAB PO SCH (10:01)
[2020-12-22] MEDS: cefTRIAXone\\ROCEPHIN 1 GM in Sodium Chloride 0.9% 100 ML IVPB SCH (10:10)
[2020-12-22] MEDS ORDERED: Mometasone 100 MCG/Formoterol 5 MCG 120 PUFF INHALER INH SCH (18:30)
[2020-12-22] MEDS: Amoxicillin/Potassium Clav 875 MG TAB PO SCH (22:39)
[2020-12-22] MEDS: Atorvastatin Calcium 40 MG TAB PO SCH (22:39)
[2020-12-22] MEDS: Montelukast Sodium 10 mg Tablet PO SCH (22:40)
[2020-12-23] MEDS: methylPREDNISolone Sod Succ 40 MG VIAL IVP SCH ×2 (07:00→12:02)
[2020-12-23] MEDS: Mometasone 200 MCG/Formoterol 5 MCG 120 PUFF INHALER INH SCH (07:10)
[2020-12-23] MEDS ORDERED: Furosemide 40 MG TAB PO SCH (07:30)
[2020-12-23] MEDS: Aspirin 81 mg Enteric Coated Tablet PO SCH (10:01)
[2020-12-23] MEDS: Amoxicillin/Potassium Clav 875 MG TAB PO SCH (10:01)
[2020-12-23] MEDS: Benzonatate 100 MG CAP PO SCH (10:02)
[2020-12-23] MEDS: Spironolactone 25 MG TAB PO SCH (10:02)
[2020-12-23] MEDS: Lisinopril 20 MG TAB PO SCH (10:02)
[2020-12-23] MEDS: Enoxaparin Sodium 40 MG/0.4 ML SYRINGE SC SCH (10:04)
[2020-12-23 11:47] VITALS: TEMP 97.8
[2020-12-23 12:34] VITALS: BP 130/85
[2020-12-24] MEDS ORDERED: Hydrochlorothiazide 25 MG TAB PO SCH (09:00)
[2020-12-24] MEDS ORDERED: NIFEdipine XL 30 MG TAB PO SCH (09:00)
== END 2020-12-23 14:40 | disposition home or self-care (01) | DRG 59 ==
LOC: ERS 20:04 → ERHOLD 12-19 00:25 → 3SE 12-19 18:08 → OBSVTOIN 12-21 15:15
PROVIDERS: ADMIT Internal Medicine; ATTEND Internal Medicine
DX: G35 Multiple sclerosis (principal); J44.1 Chronic obstructive pulmonary disease with (acute) exacerbation; N17.9 Acute kidney failure, unspecified; I50.32 Chronic diastolic (congestive) heart failure; J45.31 Mild persistent asthma with (acute) exacerbation; I25.10 Atherosclerotic heart disease of native coronary artery without angina pectoris; G31.84 Mild cognitive impairment of uncertain or unknown etiology; Z20.822 Contact with and (suspected) exposure to COVID-19; F17.220 Nicotine dependence, chewing tobacco, uncomplicated; I11.0 Hypertensive heart disease with heart failure; E66.01 Morbid (severe) obesity due to excess calories; I16.0 Hypertensive urgency; J45.30 Mild persistent asthma, uncomplicated; Z87.820 Personal history of traumatic brain injury; Z79.899 Other long term (current) drug therapy; Z88.8 Allergy status to other drugs, medicaments and biological substances
CPT/HCPCS: 36415; 70450; 70490; 70544; 70553; 71045; 71250; 80048; 80053; 80061; 80307; 82103; 83880; 84146; 85007; 85025; 85027; 85652; 86140; 87635; 93005; 93306; 94640; 95712; 95715; 95816; 95819; 95957; 96372; 96374; 96376; A9579; G0378; J0696; J1650; J1940; J2060; J2920; J3475; J3490; J7050; J7611; J7620; U0003; U0005